=== PATIENT | male | born 2000 | race Caucasian/White ===

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

== ENCOUNTER 2020-05-27 08:54 | Outpatient (REF) | payer MEDICAID, SELFPAY ==
[2020-05-30 15:47] LABS: GC Result Negative (Negative)
[2020-05-30 16:21] LABS: Chlamydia Result Positive (Negative)
== END 2020-05-27 09:14 ==
LOC: NCHCN 08:54
PROVIDERS: PCP Family Medicine; Visit Provider Registered Nurse
DX: R36.1 Hematospermia (principal); Z00.00 Encounter for general adult medical examination without abnormal findings
CPT/HCPCS: 87491; 87591

== ENCOUNTER 2020-07-05 16:56 | Outpatient (REF) | payer MEDICAID, SELFPAY ==
[2020-07-07 15:46] LABS: GC Result Negative (Negative)
[2020-07-07 17:05] LABS: Chlamydia Result Positive (Negative)
== END 2020-07-05 17:16 ==
LOC: NCHCN 16:56
PROVIDERS: PCP Family Medicine; Visit Provider Nurse Practitioner Family
DX: Z11.3 Encounter for screening for infections with a predominantly sexual mode of transmission (principal)
CPT/HCPCS: 87491; 87591

== ENCOUNTER 2020-07-08 20:10 | Outpatient (REF) | payer MEDICAID, SELFPAY ==
[2020-07-11 10:03] LABS: Hepatitis C Ab w Rflx HCV PCR Negative (Negative)
[2020-07-11 10:51] LABS: Syphilis Serology (RPR) Negative (Negative)
== END 2020-07-08 20:30 ==
LOC: NCHCN 20:10
PROVIDERS: PCP Family Medicine; Visit Provider Nurse Practitioner Family
DX: Z11.3 Encounter for screening for infections with a predominantly sexual mode of transmission (principal)
CPT/HCPCS: 86803; 86592

== ENCOUNTER 2020-10-12 15:25 | Outpatient (REF) | payer MEDICAID, SELFPAY ==
[2020-10-13 14:03] LABS: Chlamydia Result Negative (Negative); GC Result Negative (Negative)
== END 2020-10-12 15:26 | disposition home or self-care (01) ==
LOC: NCHCN 15:25
PROVIDERS: PCP Family Medicine; Visit Provider Family Medicine
DX: Z11.3 Encounter for screening for infections with a predominantly sexual mode of transmission (principal)
CPT/HCPCS: 87491; 87591